=== PATIENT | female | born 1995 | race Caucasian/White ===

== ENCOUNTER → 2024-02-01 | Outpatient (CLI) | payer OTHER | END | disposition home or self-care (01) | LOC: LABPRL 07:55 | PROVIDERS: ATTEND Obstetrics & Gynecology | DX: Z36.85 Encounter for antenatal screening for Streptococcus B (principal) | CPT/HCPCS: 87081 ==

== ENCOUNTER 2024-02-19 08:21 | Inpatient (IN) | payer MEDICAID, OTHER ==
[2024-02-19] MEDS ORDERED: TRANEXAMIC 1,000 MG/100ML-NACL 1,000 MG in EMPTY BAG 1 BAG IV PRN (09:49)
[2024-02-19] MEDS ORDERED: OXYTOCIN 10 UNIT/ML 1 ML VIAL IM PRN (09:49)
[2024-02-19] MEDS ORDERED: CARBOPROST TROMETHAMINE 250 MCG/ML 1 ML AMP IM PRN (09:49)
[2024-02-19] MEDS ORDERED: METHYLERGONOVINE 0.2 MG/ML 1 ML AMP IM PRN (09:49)
[2024-02-19] MEDS ORDERED: TERBUTALINE 1 MG/ML VIAL SQ PRN (09:49)
[2024-02-19] MEDS ORDERED: miSOPROStoL 200 MCG TAB PO PRN (09:49)
[2024-02-19] MEDS ORDERED: miSOPROStoL 200 MCG TAB RECTAL PRN (09:49)
[2024-02-19] MEDS ORDERED: OXYTOCIN 30 UNITS/500 ML NS 30 UNIT in SALINE 1 500ML.BAG IV SCH (10:00)
[2024-02-19] MEDS: LACTATED RINGERS 1,000 ML IV SCH (10:08)
[2024-02-19 10:17] LABS: Basophils % (A) 0 %; Eosinophils # (A) 0.1 k/uL (0-0.7); Eosinophils % (A) 1 %; HGB 13.2 gm/dL (11.4-16.0); Lymphocytes # (A) 2.6 k/uL (1.0-4.8); Lymphocytes % (A) 18 %; MCH 31.5 pg (25.0-35.0); MCHC 33.1 g/dL (31.0-37.0); MCV 95.4 fL (80.0-100.0); Mean Platelet Volume 8.6; Monocytes # (A) 0.4 k/uL (0-1.0); Monocytes % (A) 3 %; Neutrophils # (A) 11.3 k/uL (1.3-7.7); Neutrophils % (A) 78 %; Platelet Count 250 k/uL (150-450); RBC 4.19 m/uL (3.80-5.40); RDW 13.3 % (11.5-15.5); WBC 14.5 k/uL (3.8-10.6)
[2024-02-19 10:33] LABS: Amphetamine Screen,Urine Not Detected (NotDetected); Barbiturate Screen,Urine Not Detected (NotDetected); Benzodiazepines Screen,Urine Not Detected (NotDetected); Cocaine Screen,Urine Not Detected (NotDetected); Methadone Screen, Urine Not Detected (NotDetected); Opiate Screen,Urine Not Detected (NotDetected); Oxycodone Screen, Urine Not Detected (NotDetected); Phencyclidine Screen,Urine Not Detected (NotDetected); Tricyclic Antidepressant,Urine Not Detected (NotDetected); Urn Cannabinoid Scrn Detected (NotDetected)
[2024-02-19] MEDS: NALBUPHINE 10 MG/ML (10 ML MDV) IV PRN (11:44)
--- NOTE | 2024-02-19 13:21 | P.HPOB ---
History of Present Illness H&P Date: 02/19/24 Chief Complaint: IUP at 39 and 1 sevenths weeks, active labor This a 29-year-old 3 para 1-0-1-1 at 39 and 1 sevenths weeks presents to labor and delivery with complaints of regular painful contractions. Patient states she began jose this morning and lives [place] hour away and decided to come in patient was noted to be 2 to 3 cm and jose every 2 to 3 minutes upon presentation. Patient has been receiving routine care which has been essentially uncomplicated. Patient does have a history of vaping and THC use. Patient's first she was unaware she was delivered and did a safe surrender in [place]. Patient states baby was approximately 5 pounds. On blood work this patient is other type of a positive, rubella status immune, hepatitis B surface manage negative, HIV negative, RPR is nonreactive, grew beta strep culture was negative. Review of Systems Constitutional: Denies chills, Denies fatigue, Denies fever Ears, nose, mouth and throat: Denies headache Respiratory: Denies dyspnea Gastrointestinal: Denies nausea, Denies vomiting Genitourinary: Reports Past Medical History Past Medical History: GERD/Reflux History of Any Multi-Drug Resistant Organisms: None Reported Past Surgical History: Tonsillectomy Additional Past Surgical History / Comment(s): tubes in ears Past Anesthesia/Blood Transfusion Reactions: No Reported Reaction Past Psychological History: Anxiety, Depression Smoking Status: Never smoker Past Alcohol Use History: None Reported Past Drug Use History: Marijuana - Past Family History Father Family Medical History: Diabetes Mellitus Medications and Allergies Home Medications Medication Instructions Recorded Confirmed Type Loratadine [Claritin] 10 mg PO DAILY 02/19/24 02/19/24 History Omeprazole 20 mg PO DAILY 02/19/24 02/19/24 History Vit No.179/Iron/Folic 1 each PO DAILY 02/19/24 02/19/24 History [ Tablet] Allergies Allergy/AdvReac Type Severity Reaction Status Date / Time No Known Allergies Allergy Verified 02/19/24 08:34 Exam Osteopathic Statement: *. No significant issues noted on an osteopathic structural exam other than those noted in the History and Physical/Consult. Vital Signs Temp Pulse Resp BP 02/19/24 10:30 97.2 F L 66 16 125/75 02/19/24 10:00 97.2 F L 66 16 125/75 Intake and Output 02/18/24 02/19/24 02/19/24 22:59 06:59 14:59 Other: Weight 108.862 kg Targeted physical exam was performed this date General Is well-nourished well- developed female in no acute distress, breathing is nonlabored, heart has a regular rate and rhythm, abdomen is gravid, normal vaginal exam she was 2 to 3 cm upon presentation per RN, heart tones were noted to be category 2 with variables appreciated moderate variability is noted. She is jose every 3 minutes. Uncomfortable Results Result Diagrams: 02/19/24 10:04 Abnormal Lab Results - Last 24 Hours (Table) 02/19/24 02/19/24 Range/Units 09:52 10:04 WBC 14.5 H (3.8-10.6) k/uL Neutrophils # 11.3 H (1.3-7.7) k/uL U Marijuana (THC) Screen Detected H (NotDetected) Assessment and Plan (1) Term Current Visit: Yes Status: Acute Code(s): Z34.90 - ENCNTR FOR SUPRVSN OF NORMAL , UNSP, UNSP TRIMESTER SNOMED Code(s): 30302058 (2) Active labor Current Visit: Yes Status: Acute Code(s): GOF7655 - SNOMED Code(s): 441196971 Plan: 29-year-old 3 para 1-0-1-1 at 39 and 1 sevenths weeks presents in active labor. Patient is admitted. Patient is counseled on options for analgesia including Nubain and epidural. Patient will consider. Last delivery was unmedicated.
[2024-02-19] MEDS ORDERED: ZOLPIDEM 5 MG TAB PO PRN (13:22)
[2024-02-19] MEDS ORDERED: ACETAMINOPHEN TAB 325 MG TAB PO PRN (13:22)
[2024-02-19] MEDS ORDERED: diphenhydrAMINE 50 MG/ML 1 ML VIAL IVP PRN ×2 (13:22)
[2024-02-19] MEDS ORDERED: diphenhydrAMINE 25 MG CAP PO PRN (13:22)
[2024-02-19] MEDS ORDERED: HYDROCORTISONE 2.5% RECTAL CREAM 30 GM TUBE RECTAL PRN (13:22)
[2024-02-19] MEDS ORDERED: LANOLIN CREAM 1 GM TUBE TOPICAL PRN (13:22)
[2024-02-19] MEDS ORDERED: SIMETHICONE 80 MG CHEWABLE PO PRN (13:22)
[2024-02-19] MEDS ORDERED: diphenhydrAMINE 50 MG CAP PO PRN (13:22)
[2024-02-19] MEDS ORDERED: BENZOCAINE/MENTHOL SPRAY 1 GM/SPRAY AEROSOL TOPICAL PRN (13:22)
--- NOTE | 2024-02-19 13:22 | P.PROBDLV ---
Vaginal Delivery Note - . Vaginal Delivery Note: 29-year-old 3 para 1-0-1-1 at 39 and 1 sevenths weeks presented with complaints of regular painful contractions that began earlier today. Patient presented to labor and delivery and was noted to be in active labor. Patient made good progress through labor. Patient progressed to anterior lip amniotomy was performed clear fluid was obtained. Patient began pushing upon complete dilation and had a normal spontaneous vaginal delivery of a viable male a t 1302, weight of 6 pounds 14 ounces, Apgars of 9 and 9 at 1 and 5 minutes respectively. After 2-minute delay the umbilical cord was doubly clamped and cut and the opposed handed to the maternal abdomen. Spontaneous cry was noted at . The placenta was delivered spontaneously intact with a three-vessel cord being noted. On inspection of the patient's vaginal vault a right labial laceration was appreciated to the hymenal edge. This was injected with lidocaine and repaired with 4-0 chromic in a running locked fashion. Hemostasis was noted after closure. Uterus was noted to be firm and below the umbilicus. Estimated blood loss 100 cc. Patient and tolerated delivery well. All counts were noted be correct x 2 at the end of the delivery.
[2024-02-19] MEDS: OXYTOCIN 30 UNITS/500 ML NS 30 UNIT in SALINE 1 500ML.BAG IV SCH (13:28)
[2024-02-19] MEDS: LIDOCAINE 0.5% (PF) 5 MG/ML (50 ML SDV) SQ PRN (13:29)
[2024-02-19] MEDS: IBUPROFEN 600 MG TAB PO SCH (17:30)
[2024-02-19] MEDS: SENNOSIDES-DOCUSATE SODIUM 1 EACH TAB PO SCH (22:47)
[2024-02-20] MEDS: PRENATAL VIT-IRON-FOLIC ACID 1 EACH TABLET PO SCH (08:07)
[2024-02-20 09:38] VITALS: RESP 14
--- NOTE | 2024-02-20 13:08 | P.DS ---
Providers Date of admission: 02/19/24 09:49 Expected date of discharge: 02/20/24 Attending physician: Catrachita Pfeiffer MD Primary care physician: Stated None - Discharge Diagnosis(es) (1) Term Current Visit: Yes Status: Acute (2) Active labor Current Visit: Yes Status: Acute (3) Status post vaginal delivery Current Visit: Yes Status: Acute (4) Obstetrical laceration, first degree Current Visit: Yes Status: Acute Hospital Course: 29-year-old 3 para 1-0-1-1 that presented to labor and delivery in active labor on 02/18. Patient had been receiving routine care which had been essentially uncomplicated. Patient had a prior history of a vaginal delivery, she was unsure how far along she was and did a safe surrender in [place]. Patient states that infant was around 5 pounds. Patient was admitted progressed through labor eventually becoming 8 cm. Patient underwent amniotomy clear fluid was obtained. Patient progressed to complete and began pushing. Patient had a normal spontaneous vaginal delivery of a viable male at 1302, weight of 6 pounds 14 ounces, Apgars of 9 and 9 at 1 and 5 minutes respectively. Patient did sustain a first-degree vaginal laceration during delivery which was repaired in the usual fashion with 3-0 Rapide. Patient has done well . On this day #1 she is ambulating and voiding without difficulty. She is tolerating a regular diet without nausea or vomiting. She states her pain is well-controlled. She would like discharge home at 24 hours of possible. Patient Condition at Discharge: Good Plan - Discharge Summary New Discharge Prescriptions: No Action Loratadine [Claritin] 10 mg PO DAILY Omeprazole 20 mg PO DAILY Vit No.179/Iron/Folic [ Tablet] 1 each PO DAILY Discharge Medication List Loratadine [Claritin] 10 mg PO DAILY 02/19/24 [History] Omeprazole 20 mg PO DAILY 02/19/24 [History] Vit No.179/Iron/Folic [ Tablet] 1 each PO DAILY 02/19/24 [History] Follow up Appointment(s)/Referral(s): Catrachita Pfeiffer MD [STAFF PHYSICIAN] - 6 Weeks Patient Instructions/Handouts: Vaginal Delivery (DC), Vaginal Delivery (GEN) Discharge Disposition: HOME SELF-CARE
[2024-02-20 16:20] VITALS: BP 115/77; PULSE 64; TEMP 97.7
== END 2024-02-20 17:33 | disposition home or self-care (01) | DRG 560 ==
LOC: FBPOP 08:21 → 4FBP 09:49
PROVIDERS: ADMIT Obstetrics & Gynecology Obstetrics; ATTEND Obstetrics & Gynecology
PROC: 10E0XZZ Delivery of Products of Conception, External Approach (ICD-10-PCS; principal; 2024-02-19)
PROC: 0HQ9XZZ Repair Perineum Skin, External Approach (ICD-10-PCS; 2024-02-19)
PROC: 10907ZC Drainage of Amniotic Fluid, Therapeutic from Products of Conception, Via Natural or Artificial Opening (ICD-10-PCS; 2024-02-19)
DX: O99.334 Smoking (tobacco) complicating childbirth (principal); Z37.0 Single live birth; F17.290 Nicotine dependence, other tobacco product, uncomplicated; O70.0 First degree perineal laceration during delivery; Z3A.39 39 weeks gestation of pregnancy; Z79.899 Other long term (current) drug therapy